=== PATIENT | female | born 2000 | race Caucasian/White ===

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

== ENCOUNTER 2020-05-07 22:41 | Emergency (ER) | payer OTHER ==
[~2020-05-07] VITALS: Ht 162.6 cm; Wt 54.6 kg
[2020-05-07 22:54] VITALS: Ht 162.6 cm; Wt 54.6 kg
[2020-05-08 03:07] VITALS: BP 123/74
== END 2020-05-08 03:03 | disposition home or self-care (01) ==
LOC: ED 22:41
DX: T15.11XA Foreign body in conjunctival sac, right eye, initial encounter (principal); J45.909 Unspecified asthma, uncomplicated; W45.8XXA Other foreign body or object entering through skin, initial encounter; Y93.89 Activity, other specified; Y92.89 Other specified places as the place of occurrence of the external cause; Y99.8 Other external cause status